=== PATIENT | female | born 1980 | race Caucasian/White ===

== ENCOUNTER 2019-07-26 08:53 | Inpatient (IN) ==
[2019-07-26] MEDS ORDERED: ceFAZolin 3,000 MG in SYRINGE 1 EACH IV ONE (09:26)
[2019-07-26] MEDS ORDERED: OXYTOCIN 10 UNIT/ML VIAL IM ONE (09:28)
[2019-07-26] MEDS ORDERED: OXYTOCIN/LR 30 UNIT/1,000 ML BAG IV ONE (09:28)
[2019-07-26] MEDS ORDERED: ONDANSETRON 4 MG/2 ML VIAL IV ONE (09:29)
[2019-07-26] MEDS ORDERED: diphenhydrAMINE 50 MG/1 ML VIAL IV PRN ×2 (09:29)
[2019-07-26] MEDS ORDERED: FAMOTIDINE 20 MG/2 ML VIAL IV ONE (09:29)
[2019-07-26] MEDS ORDERED: hydrOXYzine HCL 25 MG/1 ML VIAL IM PRN (09:29)
[2019-07-26] MEDS ORDERED: LACTATED RINGERS 1,000 ML IV ONE (09:29)
[2019-07-26] MEDS ORDERED: PROMETHAZINE 25 MG/1 ML VIAL IM ONE (09:29)
[2019-07-26] MEDS ORDERED: CITRIC ACID/SODIUM CITRATE 30 ML UDCUP PO ONE (09:29)
[2019-07-26] MEDS ORDERED: LACTATED RINGERS 1,000 ML IV SCH ×2 (09:30→14:00)
[2019-07-26 09:49] LABS: Basophils % 0.2 % (0.0-0.8); Eosinophils # 0.2 10*3/uL (0.0-0.87); Eosinophils % 1.5 % (0.00-10.9); Hematocrit 35.7 VOL% (35.7-47.0); Hemoglobin 11.5 GM/DL (12.0-16.0); Immature Granulocytes % 0.7 %; Immature Granulocytes Absolute 0.09 #; Lymphocytes # 2.4 10*3/uL (1.4-4.0); Lymphocytes % 18.9 % (21.3-54.2); Mean Corpuscular HGB Conc 32.2 GM/DL (32-36); Mean Corpuscular Volume 84.4 FL (87-102); Mean Platelet Volume 11.2 FL (9.6-12.0); Monocytes % 5.2 % (1.7-12.7); Neutrophils % 73.5 % (38.7-73.9); Platelet Count 226 T/CUMM (130-400); Red Blood Count 4.23 MC/CUMM (3.8-5.5); Red Cell Distribution Width 14.9 % (9.3-17.3); White Blood Count 12.6 T/CUMM (4-12)
[2019-07-26 10:09] LABS: Alanine Aminotransferase < 9 U/L (13-56); Albumin 2.5 G/DL (3.4-5.0); Alkaline Phosphatase 132 U/L (45-117); Aspartate Amino Transferase 10 U/L (0-37); Blood Urea Nitrogen 7 MG/DL (7-18); Calcium 8.8 MG/DL (8.5-10.1); Estimated Glom Filtration Rate 175 ML/MIN; Glucose 97 MG/DL (74-106); Osmolality,Calculated 270.8 MOS/KG (273-304); Total Protein 6.5 G/DL (6.4-8.3)
[2019-07-26] MEDS ORDERED: ACETAMINOPHEN 500 MG TABLET PO PRN (10:36)
[2019-07-26 13:28] LABS: Cord Venous Blood HCO3 21.7 MMOL/L; Cord Venous Blood PO2 29.6
[2019-07-26] MEDS ORDERED: RHO(D) IMMUNE GLOBULIN 300 MCG SYRINGE IM ONE (13:44)
[2019-07-26] MEDS ORDERED: ACETAMINOPHEN 325 MG TABLET PO PRN (13:44)
[2019-07-26] MEDS ORDERED: SIMETHICONE CHEW 80 MG TABLET PO PRN (13:44)
[2019-07-26] MEDS ORDERED: ONDANSETRON 4 MG/2 ML VIAL IV PRN (13:44)
[2019-07-26] MEDS ORDERED: OXYTOCIN/LR 20 UNIT/1,000 ML BAG IV ONE (13:44)
[2019-07-26 13:49] LABS: Apearance,Urine CLEAR (Clear); Bilirubin,Urine Negative (Negative); Blood, Urine Negative (Negative); Glucose,Urine (UA) Negative (Negative); Ketones,Urine Negative (Negative); Mucus,Urine Occasional /LPF (Occasional); Nitrite,Urine Negative (Negative); Protein,Urine Negative; Squamous Epithelial Cell,Urine Occasional /HPF (0-10); Urine Color Yellow (Yellow); Urine Specific Gravity 1.012 (1.001-1.035); Urine Urobilinogen < 2.0 EU/DL (0.2-1.0); WBC,Urine 1 /HPF (0-6)
[2019-07-26] MEDS ORDERED: fentaNYL 100 MCG/2 ML VIAL ONE (13:57)
[2019-07-26] MEDS ORDERED: PHENYLEPHRINE 1 MG/10 ML SYRINGE IV ONE (13:57)
[2019-07-26] MEDS ORDERED: MIDAZOLAM 2 MG/2 ML VIAL ONE (13:57)
[2019-07-26] MEDS ORDERED: MORPHINE 10 MG/10 ML VIAL ONE (13:58)
[2019-07-26] MEDS ORDERED: BUPIVACAINE SPINAL 0.75% 2 ML AMP SPINAL ONE (13:58)
[2019-07-26] MEDS: METOCLOPRAMIDE 10 MG/2 ML VIAL IV PRN (18:40)
[2019-07-26] MEDS ORDERED: KETOROLAC 30 MG/1 ML VIAL IV PRN (19:26)
[2019-07-26] MEDS: ceFAZolin 1,000 MG in SYRINGE 1 EACH IV SCH (19:50)
[2019-07-26] MEDS ORDERED: diphenhydrAMINE CAP 25 MG CAPSULE PO PRN (21:16)
[2019-07-26] MEDS: DOCUSATE SODIUM 100 MG CAPSULE PO SCH (21:27)
[2019-07-26 22:33] LABS: Basophils % 0.1 % (0.0-0.8); Eosinophils # 0.1 10*3/uL (0.0-0.87); Eosinophils % 0.7 % (0.00-10.9); Immature Granulocytes % 0.6 %; Immature Granulocytes Absolute 0.08 #; Lymphocytes # 2.2 10*3/uL (1.4-4.0); Mean Corpuscular HGB Conc 31.4 GM/DL (32-36); Mean Corpuscular Volume 85.8 FL (87-102); Mean Platelet Volume 11.2 FL (9.6-12.0); Monocytes % 5.1 % (1.7-12.7); Neutrophils % 77.5 % (38.7-73.9); Platelet Count 188 T/CUMM (130-400); Red Blood Count 4.08 MC/CUMM (3.8-5.5); Red Cell Distribution Width 14.6 % (9.3-17.3)
[2019-07-27] MEDS: ceFAZolin 1,000 MG in SYRINGE 1 EACH IV SCH (04:16)
[2019-07-27 04:59] LABS: Basophils % 0.2 % (0.0-0.8); Eosinophils # 0.2 10*3/uL (0.0-0.87); Eosinophils % 1.7 % (0.00-10.9); Hematocrit 32.4 VOL% (35.7-47.0); Hemoglobin 10.4 GM/DL (12.0-16.0); Immature Granulocytes % 0.5 %; Immature Granulocytes Absolute 0.06 #; Lymphocytes # 2.4 10*3/uL (1.4-4.0); Lymphocytes % 20.1 % (21.3-54.2); Mean Corpuscular HGB Conc 32.1 GM/DL (32-36); Mean Corpuscular Volume 84.4 FL (87-102); Mean Platelet Volume 10.9 FL (9.6-12.0); Monocytes % 6.8 % (1.7-12.7); Neutrophils % 70.7 % (38.7-73.9); Platelet Count 172 T/CUMM (130-400); Red Blood Count 3.84 MC/CUMM (3.8-5.5); Red Cell Distribution Width 14.8 % (9.3-17.3); White Blood Count 11.7 T/CUMM (4-12)
[2019-07-27] MEDS: METOCLOPRAMIDE 10 MG/2 ML VIAL IV PRN (08:01)
[2019-07-27] MEDS: MULTIVITAMIN (PRENATAL) TABLET PO SCH (09:24)
[2019-07-27] MEDS: MAGNESIUM HYDROXIDE SUSP 30 ML UDCUP PO PRN ×2 (09:24→21:33)
[2019-07-27] MEDS: DOCUSATE SODIUM 100 MG CAPSULE PO SCH ×2 (09:24→21:33)
[2019-07-27] MEDS: IBUPROFEN 800 MG TABLET PO PRN ×2 (10:35→21:33)
[2019-07-27] MEDS: oxyCODONE/ACETAMINOPHEN 5-325 MG TABLET PO PRN ×3 (11:34→23:22)
[2019-07-27] MEDS ORDERED: METOCLOPRAMIDE 10 MG TABLET ONE (15:33)
[2019-07-27] MEDS: METOCLOPRAMIDE 10 MG TABLET PO SCH ×2 (15:40→23:22)
[2019-07-28 08:11] VITALS: BP 136/81
[2019-07-28] MEDS ORDERED: INFLUENZA VIRUS VACCINE 0.5 ML SYRINGE IM ONE ×2 (09:00→10:30)
[2019-07-28] MEDS ORDERED: SERTRALINE 100 MG TABLET PO SCH (09:00)
[2019-07-28] MEDS ORDERED: PROPRANOLOL LA 80 MG CAPSULE PO SCH (09:00)
[2019-07-28] MEDS: oxyCODONE/ACETAMINOPHEN 5-325 MG TABLET PO PRN (09:33)
[2019-07-28] MEDS ORDERED: DIPH/TET/ACEL PERT BOOSTER VACCINE 0.5 ML VIAL IM ONE (09:39)
[2019-07-28] MEDS: DOCUSATE SODIUM 100 MG CAPSULE PO SCH (09:40)
[2019-07-28] MEDS: MULTIVITAMIN (PRENATAL) TABLET PO SCH (09:40)
[2019-07-28] MEDS: METOCLOPRAMIDE 10 MG TABLET PO SCH (09:41)
== END 2019-07-28 12:45 | disposition home or self-care (01) | DRG 785 ==
LOC: N.LDOUT 08:53 → N.LD 08:54 → N.OB 17:35
PROVIDERS: ADMIT Obstetrics & Gynecology; ATTEND Obstetrics & Gynecology